=== PATIENT | female | born 1985 | race African-American/Black ===

== ENCOUNTER 2023-06-26 18:13 | Emergency (ER) | payer MEDICAID, OTHER ==
[~2023-06-26] VITALS: Ht 157.5 cm; Wt 70.8 kg
[2023-06-26] MEDS: IV NS 0.9% 1,000 ML BAG IV ONE (18:30)
[2023-06-26 18:43] LABS: BASOPHILS % (AUTO) 0.2 % (0.0-2.0); EOSINOPHILS # (AUTO) 0.2 K/uL (0.0-0.7); EOSINOPHILS % (AUTO) 2.4 % (0.0-6.0); HEMATOCRIT 41 % (33-45); HEMOGLOBIN 13.5 g/dL (11.5-14.8); LYMPHOCYTES # (AUTO) 2.3 K/uL (0.8-4.8); LYMPHOCYTES % (AUTO) 35.7 % (20.0-44.0); MEAN CORPUSCULAR HEMOGLOBIN 32 PG (26.0-33.0); MEAN CORPUSCULAR HGB CONC 33 g/dl (31.0-36.0); MEAN CORPUSCULAR VOLUME 98 fL (82-100); MONOCYTES # (AUTO) 0.5 K/uL (0.1-1.30); MONOCYTES % (AUTO) 7.6 % (2.0-12.0); NEUTROPHILS # (AUTO) 3.4 K/uL (1.8-8.9); NEUTROPHILS % (AUTO) 54.1 % (43.0-81.0); PLATELET COUNT (AUTO) 359 K/uL (150-450); RED BLOOD CELL COUNT(AUTO) 4.17 MIL/uL (4.0-5.2); RED CELL DISTRIBUTION WIDTH 13.5 % (11.5-15.0); WHITE BLOOD COUNT (AUTO) 6.3 K/uL (4.3-11.0)
[2023-06-26 18:52] LABS: CALCIUM, SERUM 8.6 mg/dL (8.5-10.1); POTASSIUM 3.1 mmol/L (3.5-5.1)
[2023-06-26 18:56] LABS: ALBUMIN 4.1 g/dL (3.4-5.0); BILIRUBIN,DIRECT 0.1 mg/dL (0.0-0.2); BILIRUBIN,TOTAL 0.5 mg/dL (0.2-1.0); TOTAL PROTEIN, SERUM 7.3 g/dL (6.4-8.2)
[2023-06-26 18:58] LABS: SALICYLATE 1.4 mg/dL (2.8-20.0)
[2023-06-26 20:25] LABS: BARBITURATE, URINE NEGATIVE (NEGATIVE); COCCAINE, URINE NEGATIVE (NEGATIVE); OPIATE, URINE NEGATIVE (NEGATIVE); PHENCYCLIDINE SCREEN,URINE NEGATIVE (NEGATIVE)
[2023-06-26 20:28] LABS: APPEARANCE,URINE SLIGHTLY CLOUDY (CLEAR); BILIRUBIN,URINE NEGATIVE (NEGATIVE); BLOOD, URINE NEGATIVE Ery/uL (NEGATIVE); COLOR,URINE YELLOW (YELLOW); KETONES,URINE NEGATIVE (NEGATIVE); LEUKOCYTE ESTERASE ,URINE 1+ (NEGATIVE); NITRITE, URINE NEGATIVE (NEGATIVE); PROTEIN,URINE NEGATIVE (NEGATIVE); UGLUCOSE NEGATIVE (NEGATIVE); UROBILINOGEN,URINE 0.2 EU/dL (0.2)
[2023-06-26 20:28] LABS: AMPHETAMINE, URINE POSITIVE (NEGATIVE); BENZODIAZEPINE, URINE POSITIVE (NEGATIVE); CANNABINOID, URINE POSITIVE (NEGATIVE)
[2023-06-26 20:50] LABS: PREGNANCY TEST URINE QUAL NEGATIVE (NEGATIVE)
[2023-06-26 20:53] LABS: ADD URINE CULTURE YES; BACTERIA,URINE 1+ /HPF (None Seen); RBC,URINE 0-2 /HPF (0-2); SQUAMOUS EPITHELIAL CELL,UR 0-2 /HPF (None Seen)
[2023-06-27] MEDS ORDERED: LORAZEPAM 1 MG TABLET ONE (00:25)
[2023-06-27] MEDS: LORAZEPAM 1 MG TABLET PO ONE (00:27)
[2023-06-27] MEDS: CEPHALEXIN MONOHYDRATE 500 MG CAPSULE PO ONE (07:05)
[2023-06-27] MEDS: POTASSIUM CHLORIDE 20 MEQ TAB.PRT.SR PO ONE (11:50)
[2023-06-27] MEDS: OLANZAPINE 5 MG TABLET PO SCH (13:00)
[2023-06-27] MEDS ORDERED: OLANZAPINE 5 MG TABLET ONE (21:08)
[2023-06-28] MEDS: CEPHALEXIN MONOHYDRATE 500 MG CAPSULE PO SCH (08:31)
[2023-06-28] MEDS ORDERED: OLANZAPINE 5 MG TABLET ONE (09:02)
[2023-06-28] MEDS ORDERED: OLANZAPINE 10 MG VIAL IM ONE (13:20)
[2023-06-28] MEDS: OLANZAPINE 10 MG VIAL IM PRN (13:25)
[2023-06-28] MEDS ORDERED: CEPHALEXIN MONOHYDRATE 500 MG CAPSULE PO ONE (16:57)
[2023-06-28] MEDS: OLANZAPINE 5 MG TABLET PO ONE (17:15)
[2023-06-29] MEDS ORDERED: OLANZAPINE 5 MG TABLET ONE ×5 (08:36→15:55)
[2023-06-29] MEDS ORDERED: CEPHALEXIN MONOHYDRATE 500 MG CAPSULE PO ONE ×2 (08:36→15:55)
[2023-06-29] MEDS: OLANZAPINE 5 MG TABLET PO SCH (08:39)
[2023-06-29] MEDS: OLANZAPINE 5 MG TABLET PO ONE ×2 (09:57→14:50)
[2023-06-29] MEDS ORDERED: LORAZEPAM 1 MG TABLET ONE (15:53)
[2023-06-29] MEDS: LORAZEPAM 1 MG TABLET PO ONE (15:54)
[2023-06-29] MEDS ORDERED: CEPH750C9 PO (18:08)
[2023-06-29] MEDS ORDERED: OLAN5TAB3 PO (18:08)
[2023-06-29 18:51] VITALS: BP 124/66; TEMP 98.2; O2SAT 99
== END 2023-06-29 18:51 | disposition home or self-care (01) ==
LOC: ER 18:15
DX: F29 Unspecified psychosis not due to a substance or known physiological condition (principal); F15.10 Other stimulant abuse, uncomplicated
CPT/HCPCS: 99285; 96360; 85025; 80048; 80076; 84703; 81001; 36415; 80143; 80320; 80307; 87086; 96372; J7030; J3490; G0480